=== PATIENT | male | born 1985 | race American Indian/Alaskan Native ===

== ENCOUNTER 2017-12-24 06:54 | Emergency (ER) | payer SELFPAY ==
[2017-12-24 07:43] LABS: Basophils % (Auto) 0.5 % (0.0-1.8); Eosinophils % (Auto) 0.1 % (0.0-4.3); Hematocrit 36.2 % (35.5-45.6); Hemoglobin 11.9 gm/dl (11.8-15.2); Lymphocytes % (Auto) 19.2 % (13.4-35.0); Mean Corpuscular HGB Conc 33 % (32-34); Mean Corpuscular Hemoglobin 29 pg (28-32); Mean Corpuscular Volume 89 fl (84-94); Monocytes # (Auto) 0.2 K/mm3 (0.0-0.8); Monocytes % (Auto) 4.5 % (0.0-7.3); Platelet Count 231 K/mm3 (140-440); Red Blood Count 4.06 M/mm3 (3.65-5.03); Red Cell Distribution Width 13.7 % (13.2-15.2)
[2017-12-24 08:08] LABS: Bilirubin,Urine NEG (Negative); Blood,Urine LG (Negative); Color,Urine Red (Yellow); Nitrite,Urine NEG (Negative); Urobilinogen,Urine < 2.0 mg/dL (<2.0); WBC,Urine < 1.0 /HPF (0.0-6.0)
[2017-12-24 08:11] LABS: Alanine Aminotransferase 24 units/L (7-56); Albumin 4.4 g/dL (3.9-5); BUN/Creatinine Ratio 10; Blood Urea Nitrogen 8 mg/dL (9-20); Calcium 9.1 mg/dL (8.4-10.2); Hemolysis Index 14
[2017-12-24] MEDS ORDERED: ZOFRAN IV ONE (08:33)
[2017-12-24] MEDS ORDERED: NACL 0.9% 1000 ML 1,000 ML IV ONE (08:33)
[2017-12-24] MEDS ORDERED: MORPHINE IV ONE ×2 (08:33→10:41)
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
--- NOTE | 2017-12-24 09:23 | XRay Report ---
ABDOMEN, 2 views: History: Abdominal pain. There is no evidence of free air beneath the diaphragms. The gas pattern within the abdomen is unremarkable. There is no evidence of bowel dilatation, significant air-fluid levels, or pathologic calcifications. Organ shadows are unremarkable. There is a linear metallic density in the left anterior subcutaneous tissues when comparing to the CT dated 08/28/16. This may represent a surgical clip or foreign body. Please correlate with the patient. IMPRESSION: Unremarkable abdomen. Metallic linear density in the anterior soft tissues which is unchanged since 2016. Please correlate with patient
--- NOTE | 2017-12-24 10:22 | Cat Scan Report ---
CT ABDOMEN PELVIS WITHOUT CONTRAST: HISTORY: abdominal pain. COMPARISON: 08/28/16. TECHNIQUE: Helical CT in 1.25mm intervals without IV contrast. Sagittal and coronal reconstructions. FINDINGS: Lung bases: Normal. Liver: Normal. Biliary system: Cholecystectomy changes are suspected. No biliary dilatation is detected. Pancreas: Normal. Spleen: Normal. Kidneys/ureters/bladder: Normal. Adrenal glands: Normal. Aorta: Normal. Intestines: Normal. Appendix: Normal. Pelvic viscera: Normal. Ascites: None. Adenopathy: None. Musculoskeletal: Normal. IMPRESSION: Unremarkable CT scan of the abdomen and pelvis without contrast. Cholecystectomy. No change since 08/28/16.
[2017-12-24 12:04] VITALS: BP 131/75
== END 2017-12-24 12:03 | disposition home or self-care (01) ==
LOC: ED 06:54
DX: R10.30 Lower abdominal pain, unspecified (principal); R31.9 Hematuria, unspecified; R11.2 Nausea with vomiting, unspecified; R19.7 Diarrhea, unspecified; I10 Essential (primary) hypertension; J45.909 Unspecified asthma, uncomplicated; F17.200 Nicotine dependence, unspecified, uncomplicated; F41.9 Anxiety disorder, unspecified; Z90.49 Acquired absence of other specified parts of digestive tract; Z86.711 Personal history of pulmonary embolism; Z88.8 Allergy status to other drugs, medicaments and biological substances; Z91.041 Radiographic dye allergy status
CPT/HCPCS: 36415; 74019; 74176; 80053; 81001; 82550; 83690; 85025; 96361; 96374; 96375; 96376; 99284; J2270; J2405; J7030

== ENCOUNTER 2018-01-05 09:46 | Emergency (ER) | payer SELFPAY ==
[2018-01-05] MEDS ORDERED: MORPHINE ONE (09:54)
[2018-01-05] MEDS ORDERED: ZOFRAN ONE (09:54)
[2018-01-05] MEDS ORDERED: ZOFRAN IV ONE (09:54)
[2018-01-05] MEDS ORDERED: SUBLIMAZE IV ONE (09:58)
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
[2018-01-05] MEDS ORDERED: MORPHINE IV ONE (10:17)
[2018-01-05 10:38] LABS: Basophils % (Auto) 0.6 % (0.0-1.8); Eosinophils # (Auto) 0.1 K/mm3 (0.0-0.4); Eosinophils % (Auto) 4.3 % (0.0-4.3); Hematocrit 35.2 % (35.5-45.6); Hemoglobin 11.6 gm/dl (11.8-15.2); Lymphocytes # (Auto) 1.4 K/mm3 (1.2-5.4); Lymphocytes % (Auto) 46.8 % (13.4-35.0); Mean Corpuscular HGB Conc 33 % (32-34); Mean Corpuscular Hemoglobin 29 pg (28-32); Mean Corpuscular Volume 87 fl (84-94); Monocytes # (Auto) 0.2 K/mm3 (0.0-0.8); Monocytes % (Auto) 8.2 % (0.0-7.3); Platelet Count 257 K/mm3 (140-440); Red Blood Count 4.03 M/mm3 (3.65-5.03); Red Cell Distribution Width 12.9 % (13.2-15.2)
[2018-01-05 10:43] LABS: Bilirubin,Urine NEG (Negative); Blood,Urine NEG (Negative); Color,Urine Yellow (Yellow); Mucus,Urine FEW /HPF; Nitrite,Urine NEG (Negative); Protein,Urine <15 mg/dL mg/dL (Negative); WBC,Urine < 1.0 /HPF (0.0-6.0)
--- NOTE | 2018-01-05 10:51 | Ultrasound Report ---
ULTRASOUND TESTICULAR DOPPLER COMPLETE History: Possible testicular torsion, pain, history of surgery one week ago for left testicular torsion. Technique: Trans-scrotal ultrasound with spectral doppler interrogation. Comparison: 09/06/16. Findings: Both testes and epididymides are normal size, contour and echotexture. No hydrocele or varicocele. No mass or pathologic calcifications. Spectral Doppler waveforms demonstrate symmetric arterial flow to both testes. IMPRESSION: Unremarkable testicular ultrasound.
[2018-01-05] MEDS ORDERED: TORADOL ONE (12:20)
[2018-01-05] MEDS ORDERED: TORADOL IV ONE (12:22)
[2018-01-05 14:51] VITALS: BP 150/87
== END 2018-01-05 14:53 | disposition home or self-care (01) ==
LOC: ED 09:46
DX: G89.18 Other acute postprocedural pain (principal); N50.812 Left testicular pain; N50.811 Right testicular pain; I10 Essential (primary) hypertension; J45.909 Unspecified asthma, uncomplicated; F41.9 Anxiety disorder, unspecified; F17.200 Nicotine dependence, unspecified, uncomplicated; Z90.49 Acquired absence of other specified parts of digestive tract; Z98.890 Other specified postprocedural states; Z88.1 Allergy status to other antibiotic agents; Z91.041 Radiographic dye allergy status
CPT/HCPCS: 36415; 81001; 85025; 93975; 96374; 96375; 99284; J1885; J2270; J2405; J3010

== ENCOUNTER 2018-02-15 07:11 | Emergency (ER) | payer SELFPAY ==
[2018-02-15 07:47] LABS: Basophils % (Auto) 0.8 % (0.0-1.8); Eosinophils # (Auto) 0.2 K/mm3 (0.0-0.4); Eosinophils % (Auto) 3.2 % (0.0-4.3); Hematocrit 37.4 % (35.5-45.6); Hemoglobin 12.3 gm/dl (11.8-15.2); Lymphocytes % (Auto) 42.8 % (13.4-35.0); Mean Corpuscular HGB Conc 33 % (32-34); Mean Corpuscular Hemoglobin 29 pg (28-32); Mean Corpuscular Volume 88 fl (84-94); Monocytes # (Auto) 0.3 K/mm3 (0.0-0.8); Monocytes % (Auto) 7.2 % (0.0-7.3); Platelet Count 253 K/mm3 (140-440); Red Blood Count 4.24 M/mm3 (3.65-5.03); Red Cell Distribution Width 13.7 % (13.2-15.2)
[2018-02-15 08:00] LABS: INR 0.95 (0.87-1.13)
[2018-02-15 08:01] LABS: Partial Thromboplastin Time 28.6 Sec. (24.2-36.6)
[2018-02-15 08:07] LABS: Alanine Aminotransferase 15 units/L (7-56); Albumin 3.8 g/dL (3.9-5); BUN/Creatinine Ratio 10; Blood Urea Nitrogen 9 mg/dL (9-20); Calcium 8.7 mg/dL (8.4-10.2); Hemolysis Index 34; Lipase 33 units/L (13-60)
--- NOTE | 2018-02-15 13:10 | Emergency Department Report ---
Blank Doc - Documentation Documentation: Patient is a 32-year-old male complains with epi gastric abdominal pain 10. He states he has a history of ulcers however this pain is unusual as this is pain has been constant and his ulcer pain usually goes away he's never had this type of pain before. He also states that he he has dark stool which he has never had before in the past. He says that also smells "weird".
--- NOTE | 2018-02-15 15:16 | Cat Scan Report ---
FINAL REPORT EXAM: CT ABDOMEN PELVIS WO CON HISTORY: upper epigastric pain and melena , prior cholecystectomy TECHNIQUE: CT examination of the ABDOMEN without IV contrast CT examination of the PELVIS without IV contrast PRIORS: 12/24/2017 FINDINGS: Stable slight linear scar in left lower lobe base. Surgically absent gallbladder. Normal noncontrast appearance of the liver, adrenals, pancreas, and spleen. Normal caliber abdominal aorta and IVC. Normal-appearing kidneys and visible ureteral segments. Intact anterior abdominal wall. No retroperitoneal adenopathy or mesenteric mass. Normal-appearing stomach and duodenum. No small bowel distention in the abdomen and pelvis. No pelvic free fluid. Normal-appearing urinary bladder, prostate, seminal vesicles, and rectum no focal sigmoid colon abnormality. No gross ascites, free air, or colonic distention. Normal-appearing cecum, terminal ileum, and appendix. Slight prominence of stool and caliber in the distal transverse colon, descending colon, proximal sigmoid colon, and rectum may reflect constipation. IMPRESSION: Prominent stool may reflect constipation. No other significant finding
[2018-02-15] MEDS ORDERED: NACL 0.9% 1000 ML 1,000 ML ONE (20:20)
[2018-02-15] MEDS ORDERED: SUBLIMAZE IV ONE (20:30)
[2018-02-15] MEDS: SUBLIMAZE IV ONE (20:45)
[2018-02-15] MEDS: NACL 0.9% 1000 ML 1,000 ML IV ONE (20:45)
[2018-02-15] MEDS: DILAUDID IV ONE (20:45)
[2018-02-15] MEDS: ZOFRAN IV ONE (20:45)
[2018-02-15] MEDS: REGLAN IV ONE (21:10)
[2018-02-15] MEDS: BENADRYL IV ONE ×2 (21:10→21:18)
[2018-02-15] MEDS: IMODIUM PO ONE (22:14)
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
[2018-02-15] MEDS: MORPHINE IV ONE (23:42)
[2018-02-16] MEDS: DILAUDID IV ONE ×2 (01:10→01:15)
[2018-02-16] MEDS: ZOFRAN IV ONE ×2 (01:13→01:16)
[2018-02-16] MEDS: PROTONIX IV ONE (01:28)
[2018-02-16] MEDS: ALUM-MAG HYDROX-SIMETH 200-200-20MG/5ML PO ONE (01:28)
[2018-02-16] MEDS: LIDOCAINE VISCOUS 2% PO ONE (01:28)
[2018-02-16 01:31] LABS: Bilirubin,Urine NEG (Negative); Blood,Urine SM (Negative); Color,Urine Yellow (Yellow); Mucus,Urine 2+ /HPF; Protein,Urine <15 mg/dL mg/dL (Negative); Urobilinogen,Urine < 2.0 mg/dL (<2.0); WBC,Urine < 1.0 /HPF (0.0-6.0)
[2018-02-16 02:30] VITALS: BP 134/72
== END 2018-02-16 02:34 | disposition home or self-care (01) ==
LOC: ED 07:11
DX: R10.30 Lower abdominal pain, unspecified (principal); R19.7 Diarrhea, unspecified; I10 Essential (primary) hypertension; J45.909 Unspecified asthma, uncomplicated; F41.9 Anxiety disorder, unspecified; F17.200 Nicotine dependence, unspecified, uncomplicated; F12.10 Cannabis abuse, uncomplicated; Z90.49 Acquired absence of other specified parts of digestive tract; Z91.041 Radiographic dye allergy status; Z88.6 Allergy status to analgesic agent
CPT/HCPCS: 36415; 74176; 80053; 81001; 82270; 82271; 83690; 85007; 85025; 85610; 85730; 86850; 86900; 86901; 87045; 87177; 93005; 93010; 96361; 96374; 96375; 99285; C9113; J1170; J1200; J2270; J2405; J2765; J7030

== ENCOUNTER 2018-03-10 12:14 | Emergency (ER) | payer OTHER ==
[2018-03-10 14:58] LABS: Bilirubin,Urine NEG (Negative); Blood,Urine NEG (Negative); Color,Urine Red (Yellow); Protein,Urine <15 mg/dL mg/dL (Negative); RBC,Urine < 1.0 /HPF (0.0-6.0); Urobilinogen,Urine < 2.0 mg/dL (<2.0); WBC,Urine < 1.0 /HPF (0.0-6.0)
[2018-03-10 15:45] LABS: Hematocrit 41.4 % (35.5-45.6); Hemoglobin 13.1 gm/dl (11.8-15.2); Mean Corpuscular HGB Conc 32 % (32-34); Mean Corpuscular Hemoglobin 29 pg (28-32); Mean Corpuscular Volume 91 fl (84-94); Platelet Count 237 K/mm3 (140-440); Red Blood Count 4.54 M/mm3 (3.65-5.03); Red Cell Distribution Width 13.9 % (13.2-15.2)
[2018-03-10 15:56] LABS: Alanine Aminotransferase 11 units/L (7-56); Albumin 4.3 g/dL (3.9-5); BUN/Creatinine Ratio 8; Blood Urea Nitrogen 7 mg/dL (9-20); Hemolysis Index 57
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
[2018-03-10 17:09] LABS: Lipase 29 units/L (13-60)
[2018-03-10] MEDS ORDERED: PERCOCET 5/325 PO ONE (17:18)
[2018-03-10] MEDS ORDERED: PERCOCET 5/325 ONE (17:19)
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
[2018-03-10] MEDS ORDERED: MORPHINE IV ONE ×2 (19:19→21:09)
[2018-03-10] MEDS ORDERED: ZOFRAN IV ONE (19:19)
[2018-03-10] MEDS ORDERED: PEPCID PO ONE (21:15)
[2018-03-10] MEDS ORDERED: ALUM-MAG HYDROX-SIMETH 200-200-20MG/5ML PO ONE (21:16)
--- NOTE | 2018-03-10 21:57 | Cat Scan Report ---
FINAL REPORT EXAM: CT ABDOMEN PELVIS WO CON HISTORY: chronic abd pain TECHNIQUE: CT abdomen and pelvis without contrast PRIORS: None. FINDINGS: The lower pelvis is incompletely included in the field of view. If there is concern for pathology in this area additional scans are recommended. No acute abnormality identified in the lung bases. No focal abnormality identified within the liver parenchyma. The spleen demonstrates normal size and attenuation. No pancreatic abnormalities seen. Kidneys demonstrate no evidence of hydronephrosis or nephrolithiasis. No ureteral calculus identified. The adrenal glands are unremarkable. Abdominal aorta is normal in caliber. No pathologically enlarged lymph nodes are identified. No signs of free fluid or free air No evidence of small bowel dilatation. The appendix is identified and is normal in size no adjacent inflammatory change seen. No pericolonic inflammatory changes are observed. Urinary bladder is unremarkable. IMPRESSION: Lower pelvis is incompletely included in the field of view if there is clinical concern for pathology in this area additional scanning recommended Status post cholecystectomy No acute abnormalities seen
[2018-03-10 22:22] VITALS: BP 139/87
== END 2018-03-10 22:33 | disposition home or self-care (01) ==
LOC: ED 12:14
DX: R10.13 Epigastric pain (principal); I10 Essential (primary) hypertension; J45.909 Unspecified asthma, uncomplicated; F17.200 Nicotine dependence, unspecified, uncomplicated; F12.10 Cannabis abuse, uncomplicated; Z88.8 Allergy status to other drugs, medicaments and biological substances; Z91.041 Radiographic dye allergy status; Z86.711 Personal history of pulmonary embolism; Z90.49 Acquired absence of other specified parts of digestive tract
CPT/HCPCS: 36415; 71250; 74176; 80053; 81001; 82150; 83690; 85025; 96374; 96375; 96376; 99284; J2270; J2405

== ENCOUNTER 2019-02-16 10:36 | Emergency (ER) | payer MEDICAID, OTHER ==
[2019-02-16 11:07] LABS: Basophils % (Auto) 0.9 % (0.0-1.8); Eosinophils # (Auto) 0.1 K/mm3 (0.0-0.4); Eosinophils % (Auto) 1.9 % (0.0-4.3); Hematocrit 41.2 % (35.5-45.6); Hemoglobin 13.4 gm/dl (11.8-15.2); Lymphocytes # (Auto) 2.5 K/mm3 (1.2-5.4); Mean Corpuscular HGB Conc 33 % (32-34); Mean Corpuscular Volume 90 fl (84-94); Monocytes # (Auto) 0.3 K/mm3 (0.0-0.8); Monocytes % (Auto) 5.5 % (0.0-7.3); Platelet Count 250 K/mm3 (140-440); Red Cell Distribution Width 13.7 % (13.2-15.2)
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
[2019-02-16 11:30] LABS: BUN/Creatinine Ratio 12; Blood Urea Nitrogen 13 mg/dL (9-20); Calcium 8.9 mg/dL (8.4-10.2); Hemolysis Index 18
[2019-02-16] MEDS ORDERED: NORCO 7.5/325 PO ONE (12:18)
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
--- NOTE | 2019-02-16 13:39 | Nuclear Medicine Report ---
LUNG SCAN, VENTILATION AND PERFUSION: History: Chest pain. Technique: 5mci of Tc99m MAA was infused for the perfusion images. 15mci XE 133 gas was inhaled for the ventilatory images. Correlation is made with a chest x-ray dated 02/16/19. Findings: Inhalation of Xenon gas demonstrates a normal distribution of the activity throughout both lungs. The wash out phases show no focal retention of activity. After injection of Technetium 99m macroaggregated albumin gamma camera imaging of the lungs in multiple projections demonstrates normal pulmonary contours with a homogeneous distribution of activity. No focal areas of perfusion deficiency are identified. IMPRESSION: Low probability for pulmonary embolus.
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
[2019-02-16 14:44] VITALS: BP 122/74
== END 2019-02-16 14:37 | disposition home or self-care (01) ==
LOC: ED 10:36
DX: S16.1XXA Strain of muscle, fascia and tendon at neck level, initial encounter (principal); S09.90XA Unspecified injury of head, initial encounter; R07.89 Other chest pain; I10 Essential (primary) hypertension; F41.9 Anxiety disorder, unspecified; J45.909 Unspecified asthma, uncomplicated; F17.200 Nicotine dependence, unspecified, uncomplicated; Z90.49 Acquired absence of other specified parts of digestive tract; Z79.899 Other long term (current) drug therapy; Z86.711 Personal history of pulmonary embolism
CPT/HCPCS: 36415; 70450; 71046; 72125; 78582; 80048; 84484; 85025; 93005; 93010; 99285; A9540; A9558

== ENCOUNTER 2019-02-27 21:37 | Emergency (ER) | payer MEDICAID, OTHER ==
--- NOTE | 2019-02-27 21:51 | Emergency Department Report ---
Chief Complaint: Urogenital-Male Stated Complaint: TESTICLE PAIN BLOOD IN URINE Time Seen by Provider: 02/27/19 21:47 - HPI History of Present Illness: This is a 33 y.o. male that presents with bilateral testicular pain and hematuria for 1 hour. Patient reports pain is worse on the right. Patient states it feel like someone is squeezing his testicles. Reports symptoms are similar to last year when he had testicular torsion. - Exam Vital Signs: Vital Signs 02/27/19 21:47 Temperature 98.4 F Pulse Rate 90 Respiratory 18 Rate Blood Pressure 133/82 O2 Sat by Pulse 100 Oximetry MSE screening note: Focused history and physical exam performed. Due to findings the following was ordered: Testicular Doppler and UA Main ED for further evaluation. ED Disposition for MSE Condition: Stable
[2019-02-27 22:17] LABS: Bacteria,Urine 4+ /HPF (Negative); Bilirubin,Urine NEG (Negative); Blood,Urine MOD (Negative); Color,Urine Red (Yellow); Hyaline Casts,Urine 15 /LPF; Mucus,Urine FEW /HPF; Sperm,Urine 1+ /HPF (NP); Urobilinogen,Urine < 2.0 mg/dL (<2.0)
[2019-02-27 22:21] LABS: RBC,Urine > 182.0 /HPF (0.0-6.0)
--- NOTE | 2019-02-28 01:26 | Ultrasound Report ---
PROCEDURE: US TESTICULAR DOPPLER COMP TECHNIQUE: Real-time yepez-scale and color flow Doppler sonography in multiple planes of the scrotum, testicles, and epididymes was performed. Velocity spectral waveform analysis and color Doppler imagi ng of the arterial inflow and venous outflow of the testicles was performed with image documentation. HISTORY: loreta testicular pain, r/o testicular torsion COMPARISONS: None . FINDINGS: RIGHT TESTICLE: Size: 3.4 x 2 x 2.4 cm . Appearance: Normal size and echotexture . Arterial blood flow: Normal spectral waveforms, flow velocities and color flow images.. Venous blood flow: Normal spectral waveforms and color flow images. Right epididymis: Normal size and echotexture . Hydrocele: None . LEFT TESTICLE Size: 2.1 x 2.7 x 1.8 cm . Appearance: Normal size and echotexture . Arterial blood flow: Normal spectral waveforms, flow velocities and color flow images.. Venous blood flow: Normal spectral waveforms and color flow images. Left epididymis: Normal size and echotexture . Hydrocele: None . IMPRESSION: No testicular torsion, orchitis or mass. . This document is electronically signed by Luis Lazaro MD., February 28 2019 01:24:24 AM ET
[2019-02-28] MEDS ORDERED: MORPHINE IV ONE (06:06)
[2019-02-28] MEDS ORDERED: ROCEPHIN/NS 1 GM/50 ML 1 GM/50 ML BAG IV ONE (06:06)
[2019-02-28] MEDS ORDERED: NACL 0.9% 1000 ML 1,000 ML IV ONE (06:06)
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
[2019-02-28 06:54] LABS: Basophils % (Auto) 0.8 % (0.0-1.8); Eosinophils # (Auto) 0.1 K/mm3 (0.0-0.4); Hemoglobin 11.8 gm/dl (11.8-15.2); Lymphocytes # (Auto) 1.2 K/mm3 (1.2-5.4); Lymphocytes % (Auto) 41.5 % (13.4-35.0); Mean Corpuscular HGB Conc 33 % (32-34); Mean Corpuscular Volume 90 fl (84-94); Monocytes # (Auto) 0.2 K/mm3 (0.0-0.8); Monocytes % (Auto) 8.3 % (0.0-7.3); Platelet Count 202 K/mm3 (140-440); Red Blood Count 4.02 M/mm3 (3.65-5.03); Red Cell Distribution Width 13.4 % (13.2-15.2)
[2019-02-28 07:21] LABS: Alanine Aminotransferase 8 units/L (7-56); Albumin 3.8 g/dL (3.9-5); BUN/Creatinine Ratio 10; Blood Urea Nitrogen 10 mg/dL (9-20); Calcium 8.4 mg/dL (8.4-10.2); Hemolysis Index 1
[2019-02-28] MEDS ORDERED: SUBLIMAZE ONE (07:30)
[2019-02-28 07:39] VITALS: BP 137/86
--- NOTE | 2019-02-28 07:47 | Cat Scan Report ---
PROCEDURE: CT ABDOMEN PELVIS WO CON TECHNIQUE: Routine axial imaging was obtained of the abdomen and pelvis without oral or IV contrast. Sagittal and coronal reconstructions were reviewed. HISTORY: lower abd and pelvic pain, hematuria COMPARISONS: 03/10/2018 FINDINGS: The lung bases are negative for infiltrates or effusions. The liver is normal in size and reveals a s table 3 mm low-density focus along the dome most likely representing a small cyst. This too small to characterize. The gallbladder has been removed. The biliary tree, pancreas, spleen, and adrenal gland s appear normal. The kidneys show no evidence of stones or hydronephrosis. The bowel loops are normal in caliber and c ourse. The appendix appears normal. There is no evidence of free fluid or adenopathy. In the pelvis t he prostate gland and bladder appear normal. There are phleboliths along the floor of the pelvis. The skeletal structures do not show any acute changes. IMPRESSION: No acute process in the abdomen and pelvis. Cholecystectomy. No evidence of renal stones or hydronephrosis.. This document is electronically signed by Kendrick Gutiérrez MD., February 28 2019 07:45:35 AM ET
[2019-02-28] MEDS ORDERED: SUBLIMAZE IV ONE (08:00)
== END 2019-02-28 08:18 | disposition home or self-care (01) ==
LOC: ED 21:37
DX: N30.01 Acute cystitis with hematuria (principal); I10 Essential (primary) hypertension; J45.909 Unspecified asthma, uncomplicated; F12.10 Cannabis abuse, uncomplicated
CPT/HCPCS: 36415; 74176; 80053; 81001; 85025; 93975; 96365; 96375; 99284; J0696; J2270; J3010; J7030

== ENCOUNTER 2020-01-25 12:43 | Outpatient (CLI) | payer OTHER ==
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
== END 2020-01-25 12:44 | disposition home or self-care (01) ==
LOC: XRAY 12:43
PROVIDERS: ATTEND Internal Medicine
DX: M25.511 Pain in right shoulder (principal); M25.521 Pain in right elbow

== ENCOUNTER 2020-07-04 10:15 | Emergency (ER) | payer MEDICAID, OTHER ==
[2020-07-04 10:39] VITALS: BP 123/78
[2020-07-04] MEDS ORDERED: oxyCODONE /ACETAMINOPHEN 5-325MG TAB PO ONE (10:40)
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
[2020-07-04 11:34] LABS: Bacteria,Urine 2+ /HPF (Negative); Bilirubin,Urine NEG (Negative); Blood,Urine LG (Negative); Color,Urine Red (Yellow); Mucus,Urine FEW /HPF; Urobilinogen,Urine < 2.0 mg/dL (<2.0)
[2020-07-04 11:36] LABS: RBC,Urine > 182.0 /HPF (0.0-6.0)
[2020-07-04] MEDS ORDERED: fentaNYL 100 MCG/2 ML INJ ONE (12:19)
[2020-07-04] MEDS ORDERED: fentaNYL 100 MCG/2 ML INJ IM ONE ×2 (12:20→14:13)
--- NOTE | 2020-07-04 14:06 | Ultrasound Report ---
ULTRASOUND SCROTUM INDICATION / CLINICAL INFORMATION: right testicle pain. COMPARISON: Ultrasound dated 02/28/19 FINDINGS -- RIGHT TESTIS: Size = 3.5 x 1.4 x 2.7 cm. - Appearance: No significant abnormality. - Cyst or Mass: None. - Color Doppler Flow: No significant abnormality. EPIDIDYMIS: Small 7 mm epididymal head cyst. HYDROCELE: None. VARICOCELE: None demonstrated. FINDINGS -- LEFT TESTIS: Size = 3.3 x 1.4 x 2.7 cm. - Appearance: No significant abnormality. - Cyst or Mass: None. - Color Doppler Flow: No significant abnormality. EPIDIDYMIS: No significant abnormality. HYDROCELE: None. VARICOCELE: None demonstrated. ADDITIONAL FINDINGS: None. IMPRESSION: 1. No acute sonographic abnormality. Signer Name: Elroy Ward MD Signed: 07/04/2020 2:01 PM Workstation Name: [id number]
--- NOTE | 2020-07-04 16:20 | Cat Scan Report ---
CT abdomen pelvis wo con INDICATION: right testicular and suprapubic pain. TECHNIQUE: All CT scans at this location are performed using the following dose modulation technique: Automated exposure control. CONTRAST: None. COMPARISON: None available. CT ABDOMEN: The parenchymal organs are unremarkable in appearance other than a subcentimeter right he patic cyst. Negative for abdominal mass, fluid or inflammation. The bowel is not dilated or thickened . CT PELVIS: Negative for distal ureteral stone, pelvic fluid collection or inflammation. The appendix is normal. IMPRESSION: Negative for obstruction or localized inflammation. Signer Name: Tim Zavala MD Signed: 07/04/2020 4:16 PM Workstation Name: [id number]
[2020-07-04 16:48] LABS: BUN/Creatinine Ratio 11; Blood Urea Nitrogen 11 mg/dL (9-20); Calcium 9.4 mg/dL (8.4-10.2); Hemolysis Index 4
[2020-07-04] MEDS ORDERED: ALPRAZolam 1 MG TAB PO ONE (16:48)
[2020-07-04 16:51] LABS: Hematocrit 39.4 % (35.5-45.6); Hemoglobin 12.9 gm/dl (11.8-15.2); Mean Corpuscular HGB Conc 33 % (32-34); Mean Corpuscular Volume 90 fl (84-94); Platelet Count 249 K/mm3 (140-440); Red Cell Distribution Width 13.2 % (13.2-15.2)
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
[2020-07-04 19:13] LABS: Anisocytosis 1+; Basophils % (Manual) 0 % (0.0-1.8); Total Cells Counted 100
[2020-07-04 19:14] LABS: Platelet Estimate Consistent w Auto
== END 2020-07-04 17:37 | disposition home or self-care (01) ==
LOC: ED 10:15
DX: N50.811 Right testicular pain (principal); R31.9 Hematuria, unspecified; I10 Essential (primary) hypertension; F41.9 Anxiety disorder, unspecified; J45.909 Unspecified asthma, uncomplicated; F12.10 Cannabis abuse, uncomplicated; Z98.890 Other specified postprocedural states; Z90.49 Acquired absence of other specified parts of digestive tract; Z79.899 Other long term (current) drug therapy; Z91.013 Allergy to seafood; Z88.6 Allergy status to analgesic agent; Z88.5 Allergy status to narcotic agent; Z88.8 Allergy status to other drugs, medicaments and biological substances
CPT/HCPCS: 36415; 74176; 80048; 81001; 85007; 85025; 93975; 96372; 99284; J3010

== ENCOUNTER 2020-08-18 01:01 | Emergency (ER) | payer MEDICAID ==
[2020-08-18] MEDS ORDERED: ONDANSETRON 4 MG/2 ML INJ IV ONE (02:39)
[2020-08-18] MEDS ORDERED: MORPHINE 4 MG/1 ML INJ IV ONE (02:39)
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
[2020-08-18 03:00] LABS: Basophils % (Auto) 1.2 % (0.0-1.8); Eosinophils # (Auto) 0.1 K/mm3 (0.0-0.4); Eosinophils % (Auto) 3.9 % (0.0-4.3); Hematocrit 36.2 % (35.5-45.6); Hemoglobin 11.7 gm/dl (11.8-15.2); Lymphocytes # (Auto) 1.6 K/mm3 (1.2-5.4); Lymphocytes % (Auto) 41.5 % (13.4-35.0); Mean Corpuscular HGB Conc 33 % (32-34); Mean Corpuscular Volume 92 fl (84-94); Monocytes # (Auto) 0.3 K/mm3 (0.0-0.8); Monocytes % (Auto) 7.5 % (0.0-7.3); Platelet Count 225 K/mm3 (140-440); Red Blood Count 3.92 M/mm3 (3.65-5.03); Red Cell Distribution Width 13.7 % (13.2-15.2)
[2020-08-18 03:21] LABS: Alanine Aminotransferase 9 units/L (7-56); Albumin 4.4 g/dL (3.9-5); BUN/Creatinine Ratio 8; Blood Urea Nitrogen 8 mg/dL (9-20); Calcium 9.3 mg/dL (8.4-10.2); Hemolysis Index 29
[2020-08-18] MEDS ORDERED: HYDROmorphone 1 MG/1 ML INJ IV ONE (03:30)
--- NOTE | 2020-08-18 03:48 | Ultrasound Report ---
. ULTRASOUND SCROTUM INDICATION / CLINICAL INFORMATION: right testicular pain and swelling. COMPARISON: None available. FINDINGS -- RIGHT TESTIS: Size = 2.8 x 1.5 x 3.0 cm. - Appearance: No significant abnormality. - Cyst or Mass: None. - Color Doppler Flow: No significant abnormality. EPIDIDYMIS: There are 2 small 7 mm right epididymal cyst. HYDROCELE: None. VARICOCELE: None demonstrated. FINDINGS -- LEFT TESTIS: Size = 2.8 x 1.7 x 2.9 cm. - Appearance: No significant abnormality. - Cyst or Mass: None. - Color Doppler Flow: No significant abnormality. EPIDIDYMIS: No significant abnormality. HYDROCELE: None. VARICOCELE: None demonstrated. ADDITIONAL FINDINGS: None. IMPRESSION: 1. No acute findings. 2. Tiny right epididymal cysts. Signer Name: Bora Stallworth MD Signed: 08/18/2020 3:43 AM Workstation Name: [id number]
[2020-08-18] MEDS ORDERED: oxyCODONE /ACETAMINOPHEN 5-325MG TAB PO ONE (03:56)
[2020-08-18 04:27] LABS: Bacteria,Urine 1+ /HPF (Negative); Bilirubin,Urine NEG (Negative); Blood,Urine LG (Negative); Color,Urine Red (Yellow); Mucus,Urine FEW /HPF; Urobilinogen,Urine < 2.0 mg/dL (<2.0)
--- NOTE | 2020-08-18 04:47 | Cat Scan Report ---
CT ABDOMEN AND PELVIS WITHOUT CONTRAST HISTORY: Hematuria, abdominal and pelvic pain. COMPARISON: Prior CT on 07/04/2020 TECHNIQUE: Routine abdominal and pelvic CT exam performed without contrast. Lack of intravenous cont rast limits evaluation of the vascular and solid organs.. All CT scans at this location are performed using CT dose reduction for ALARA by means of automated exposure control. FINDINGS: CT ABDOMEN: Lung Bases: No significant abnormality. Liver: Stable subcentimeter right hepatic cyst. Biliary: No significant abnormality. Spleen: No significant abnormality. Unenlarged. Pancreas: No significant abnormality. Adrenals: No significant abnormality. Kidneys: No significant abnormality. Lymphatics: No lymphadenopathy. Vasculature: No significant abnormality. Bowel/Peritoneum: No significant abnormality. No free air. No free fluid. Normal appendix. CT PELVIC: : No significant abnormality. Lymphatics: No lymphadenopathy. Osseous Structures: No aggressive appearing osseous lesions. Additional Findings: None IMPRESSION: 1. No acute findings or adverse change from the prior exam. Signer Name: Bora Stallworth MD Signed: 08/18/2020 4:43 AM Workstation Name: [id number]
[2020-08-18 05:06] VITALS: BP 122/82
== END 2020-08-18 05:06 | disposition home or self-care (01) ==
LOC: ED 01:01
DX: N50.3 Cyst of epididymis (principal); I10 Essential (primary) hypertension; J45.909 Unspecified asthma, uncomplicated; F12.10 Cannabis abuse, uncomplicated; Z90.49 Acquired absence of other specified parts of digestive tract; F41.9 Anxiety disorder, unspecified; Z88.1 Allergy status to other antibiotic agents; Z91.041 Radiographic dye allergy status
CPT/HCPCS: 36415; 74176; 80053; 81001; 85025; 93975; 96374; 96375; 99284; J2270; J2405